=== PATIENT | male | born 1995 | race Caucasian/White ===

== ENCOUNTER 2018-01-31 12:04 | Emergency (ER) | payer OTHER ==
[~2018-01-31] VITALS: Ht 175.3 cm; Wt 77.1 kg
[2018-01-31] MEDS ORDERED: AUGMENTIN 875-1 EACH PO (12:44)
--- NOTE | 2018-01-31 12:44 | ED ANIMAL BITE/WOUND CHECK ---
History of Present Illness General Chief Complaint: Animal/Insect Bite Stated Complaint: DOG BITE Source: patient Exam Limitations: no limitations Vital Signs & Intake/Output Vital Signs & Intake/Output Vital Signs Date Time Temp Pulse Resp B/P B/P Pulse O2 O2 Flow FiO2 Mean Ox Delivery Rate 01/31 1303 99.2 94 18 141/91 98 Room Air 01/31 1225 Room Air 01/31 1209 98.4 108 18 130/90 98 Room Air Allergies Coded Allergies: NO KNOWN ALLERGIES (11/02/13) Reconcile Medications Amoxicillin/Potassium Clav (Augmentin 875-125 Tablet) 875 MG-125 MG TABLET 1 TAB PO BID DOG BITE Triage Note: 22 YO MALE TO TRIAGE FOR EVAL OF DOG BITE TO L LOWER LEG. NOTED WITH PUNTURE WOUND TO LEG, NO ACTIVE BLEEDING. PT STATES DOG WAS UNKNOWN. PT NOT UTD WITH TETANUS. Triage Nurses Notes Reviewed? yes Onset: Abrupt Duration: minute(s): Timing: single episode today Is Injury an Animal Bite? Yes Animal Type: dog HPI: 22-year-old male comes into the emergency room for further evaluation of dog bite to left lower leg. [place] The employment specialist went off with the dog. He is unclear of the dog's rabies vaccine history. He denies any vomiting. His last tetanus shot is unknown. He has a laceration to his left lower leg. Some associated bleeding. He comes in for further evaluation. Past History Travel History Traveled to [place] past 21 day No Medical History Any Pertinent Medical History? 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 No Review of Systems Review of Systems Constitutional: Reports: no symptoms. EENTM: Reports: no symptoms. Respiratory: Reports: no symptoms. Cardiovascular: Reports: no symptoms. GI: Reports: no symptoms. Genitourinary: Reports: no symptoms. Musculoskeletal: Reports: no symptoms. Skin: Reports: see HPI. Neurological/Psychological: Reports: no symptoms. Hematologic/Endocrine: Reports: no symptoms. Immunologic/Allergic: Reports: no symptoms. All Other Systems: Reviewed and Negative Physical Exam Physical Exam General Appearance: well developed/nourished, mild distress Head: atraumatic Eyes: Bilateral: normal appearance. Ears, Nose, Throat: normal ENT inspection, hearing grossly normal Neck: normal inspection Respiratory: no respiratory distress Back: normal inspection Extremities: 2 cm gaping laceration to left lower leg over calf Neurologic/Psych: awake, alert, oriented x 3, normal mood/affect Skin: intact, normal color, warm/dry, 2 cm laceration left lower leg Progress Differential Diagnosis: abscess, cellulitis, joint infection, tenosysnovitis Plan of Care: 01/31/2018 1:44:52 PM Due to the fact that the rabies history is unclear patient was given the full rabies course. Started on oral Augmentin. Laceration was too gaping to not be closed. Watch for signs of infection. Departure Departure Disposition: HOME OR SELF CARE Condition: Stable Clinical Impression Primary Impression: Dog bite Secondary Impressions: Leg laceration Referrals: Wilfred Pollard MD (PCP/Family) Additional Instructions: Keep covered with bacitracin. Watch for signs of infection such as redness on discharge fever chills. Take Augmentin as prescribed. Return on days 3, 7 and 14 for rabies vaccine. Please go over all results of today's visit with your primary care doctor. Contact your primary care doctor to let them know you were here in the emergency room. There may be nonspecific findings which may not be related to your visit today here in the emergency room but may require further evaluation and chronic monitoring by your primary care doctor. If you had a laceration today the chance of foreign body always remains. You should follow-up with your primary care doctor for recheck in 3-5 days for a wound check. If you had an x-ray done there is a chance that a fracture could have been missed on initial read and you should follow-up with your primary care doctor for repeat x-rays if symptoms persist. If your blood pressure was elevated here in the emergency room please have rechecked by [facility] primary care doctor within the next 48. If you were prescribed a narcotic here in the emergency room or any type of controlled substances you're not allowed to drive while taking this medication or operate any type of heavy machinery. Narcotics can make you feel lightheaded dizziness nausea and can cause constipation. You may need to pick pulling machine operator a stool softener. Thank you for choosing emergency room. Please return to the emergency room immediately if you have any other concerns worsening of symptoms. Departure Forms: Customer Survey General Discharge Information Prescriptions: Current Visit Scripts Amoxicillin/Potassium Clav (Augmentin 875-125 Tablet) 1 TAB PO BID #14 TAB Procedures Laceration/Wound Repair Progress: 2 cm laceration to left lower leg, gaping, irrigated with saline Betadine and peroxide, lidocaine with epinephrine, 4 mL injected, 3. 0 nylon, 2 sutures placed, bacitracin and dry sterile dressing placed over
[2018-01-31 13:03] VITALS: BP 141/91
== END 2018-01-31 13:33 ==
LOC: ERH 12:04
DX: S81.812A Laceration without foreign body, left lower leg, initial encounter (principal); W54.0XXA Bitten by dog, initial encounter; Y92.821 Forest as the place of occurrence of the external cause; Y93.01 Activity, walking, marching and hiking
CPT/HCPCS: 90376; 90471; 90714

== ENCOUNTER 2018-02-07 15:10 | Emergency (ER) | payer OTHER ==
[~2018-02-07] VITALS: Ht 175.3 cm; Wt 79.4 kg
[~2018-02-07 15:10] MED LIST: AUGMENTIN 875-1 EACH PO
[2018-02-07 15:20] VITALS: BP 127/81
== END 2018-02-07 15:45 | disposition admitted as inpatient to this hospital (09) ==
LOC: ERH 15:10
DX: Z28.89 Immunization not carried out for other reason (principal)

== ENCOUNTER 2018-02-11 11:42 | Emergency (ER) | payer OTHER ==
[~2018-02-11] VITALS: Ht 175.3 cm; Wt 79.4 kg
[2018-02-11 11:52] VITALS: BP 130/82
--- NOTE | 2018-02-11 13:15 | ED ANIMAL BITE/WOUND CHECK ---
History of Present Illness General Chief Complaint: Suture Removal/Wound Recheck Stated Complaint: SUTURE REMOVAL Source: patient, old records Exam Limitations: no limitations Vital Signs & Intake/Output Vital Signs & Intake/Output Vital Signs Date Time Temp Pulse Resp B/P B/P Pulse O2 O2 Flow FiO2 Mean Ox Delivery Rate 02/11 1152 98.0 83 16 130/82 98 Room Air Allergies Coded Allergies: NO KNOWN ALLERGIES (11/02/13) Reconcile Medications Amoxicillin/Potassium Clav (Augmentin 875-125 Tablet) 875 MG-125 MG TABLET 1 TAB PO BID DOG BITE Triage Note: 22M FOR SUTURE REMOVAL, TWO SUTURES PLACED 10 DAYS AGO LAST TUESDAY. LAST RABIES SHOT DUE NEXT WEEK. VERY MINIMAL REDNESS SURROUNDING SITE, NO DRAINAGE. DENIES F/C, AFEBRILE IN TRIAGE Triage Nurses Notes Reviewed? yes Onset: Abrupt Duration: better Timing: recent history Severity of Attack: bitten Severity: mild HPI: Patient is a 22-year-old male who presents emergent with request of wound check and suture removal with old records indicate on January 31 he was bit by an unknown stray dog to the left calf region patient received rabies vaccines and #2 sutures were placed for the laceration Patient had finished course of the antibiotics prescribed to him denies any fever chills discharged and is otherwise without complaints. (Trevon Dias) Past History Travel History Traveled to [place] past 21 day No Medical History Any Pertinent Medical History? 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 No (Trevon Dias) Review of Systems Review of Systems Constitutional: Reports: no symptoms. EENTM: Reports: no symptoms. Respiratory: Reports: no symptoms. Cardiovascular: Reports: no symptoms. GI: Reports: no symptoms. Genitourinary: Reports: no symptoms. Musculoskeletal: Reports: no symptoms. Skin: Reports: see HPI. Neurological/Psychological: Reports: no symptoms. Hematologic/Endocrine: Reports: no symptoms. Immunologic/Allergic: Reports: no symptoms. All Other Systems: Reviewed and Negative (Trevon Dias) Physical Exam Physical Exam General Appearance: no apparent distress, alert, comfortable Head: atraumatic Eyes: Bilateral: normal appearance. Ears, Nose, Throat: hearing grossly normal Neck: normal inspection Respiratory: no respiratory distress Extremities: evidence of injury Neurologic/Psych: no motor/sensory deficits, awake, alert Skin: normal color, warm/dry Diagram Body: 1) Well-healing 1 cm laceration with #2 intact sutures no surrounding erythema warmth or discharge (Trevon Dias) Progress Differential Diagnosis: abscess, cellulitis, joint infection, tenosysnovitis Plan of Care: No signs of infection on exam, #2 sutures were removed without complications bacitracin bandage was applied. Patient was advised to return to emergency room on February 14 for his final rabies vaccine (Trevon Dias) Departure Departure Disposition: HOME OR SELF CARE Condition: Stable Clinical Impression Primary Impression: Visit for wound check Secondary Impressions: Visit for suture removal Referrals: Wilfred Pollard MD (PCP/Family) Additional Instructions: As discussed apply bacitracin ointment AND BANDAID and change dressings 1 more day tomorrow, and leave the wound open to improve healing. If you note signs of infection or if YOU develop new concerning symptom return to emergency room, return to emergency room on February 14 for your final rabies vaccine. Keep area dry and clean as YOU can Departure Forms: Customer Survey General Discharge Information (Trevon Dias) PA/PROFESSOR OF BIOLOGICAL SCIENCES Co-Sign Statement Statement: ED Attending supervision documentation- [] I saw and evaluated the patient. I have also reviewed all the pertinent lab results and diagnostic results. I agree with the findings and the plan of care as documented in the PA's/PROFESSOR OF BIOLOGICAL SCIENCES's documentation. [X] I have reviewed the ED Record and agree with the PA's/PROFESSOR OF BIOLOGICAL SCIENCES's documentation. [] Additions or exceptions (if any) to the PAs/PROFESSOR OF BIOLOGICAL SCIENCES's note and plan are summarized below: [] (Rick MARQUEZ,Nehemiah Gay)
== END 2018-02-11 13:27 ==
LOC: ERH 11:42
DX: Z48.02 Encounter for removal of sutures (principal)

== ENCOUNTER 2018-02-14 14:53 | Emergency (ER) | payer OTHER ==
[~2018-02-14] VITALS: Ht 175.3 cm; Wt 79.4 kg
--- NOTE | 2018-02-14 15:36 | ED GENERAL ADULT ---
History of Present Illness General Chief Complaint: General Adult Stated Complaint: LAST RABIES SHOT Source: patient Exam Limitations: no limitations Vital Signs & Intake/Output Vital Signs & Intake/Output Vital Signs Date Time Temp Pulse Resp B/P B/P Pulse O2 O2 Flow FiO2 Mean Ox Delivery Rate 02/14 1538 Room Air 02/14 1500 98.9 102 18 98 Room Air Room Air Allergies Coded Allergies: NO KNOWN ALLERGIES (11/02/13) Reconcile Medications Amoxicillin/Potassium Clav (Augmentin 875-125 Tablet) 875 MG-125 MG TABLET 1 TAB PO BID DOG BITE Triage Note: PT TO ED FOR LAST RABIES SHOT, ORIGINAL INJURY WAS DOG BITE TO LEFT [place] AREA. Triage Nurses Notes Reviewed? yes Onset: Abrupt Duration: day(s): Timing: recent history Injury Environment: home Severity: moderate, severe HPI: 22-year-old male comes into the emergency room for further evaluation of laceration is vaccine. Denies any other associated symptoms. Patient had been bitten by a dog initially. (Duncan Mock) Past History Travel History Traveled to [place] past 21 day No Medical History Any Pertinent Medical History? 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 No (Duncan Mock) Review of Systems Review of Systems Constitutional: Reports: no symptoms. EENTM: Reports: no symptoms. Respiratory: Reports: no symptoms. Cardiovascular: Reports: no symptoms. GI: Reports: no symptoms. Genitourinary: Reports: no symptoms. Musculoskeletal: Reports: no symptoms. Skin: Reports: no symptoms. Neurological/Psychological: Reports: no symptoms. Hematologic/Endocrine: Reports: no symptoms. Immunologic/Allergic: Reports: no symptoms. All Other Systems: Reviewed and Negative (Duncan Mock) Physical Exam Physical Exam General Appearance: well developed/nourished, no apparent distress, alert, awake Head: atraumatic, normal appearance Eyes: Bilateral: normal appearance. Ears, Nose, Throat: normal ENT inspection, hearing grossly normal Neck: normal inspection Respiratory: no respiratory distress Gastrointestinal: soft Back: normal inspection Extremities: Scabbing to left lower leg, no erythema, no warmth, discharge Neurologic/Psych: awake, alert, oriented x 3, normal gait Skin: intact, normal color Core Measures ACS in differential dx? No CVA/TIA Diagnosis: No Sepsis Present: No Sepsis Focused Exam Completed? No (Duncan Mock) Progress Differential Diagnoses I considered the following diagnoses in my evaluation of the patient: Rabies, allergic reaction, cellulitis, abscess, Plan of Care: 02/14/2018 3:44:28 PM Patient clinically looks well. In no apparent distress. Nontoxic-appearing. Initial ED EKG: none (Duncan Mock) Departure Departure Disposition: HOME OR SELF CARE Condition: Stable Clinical Impression Primary Impression: Need for post exposure prophylaxis for rabies Referrals: Wilfred Pollard MD (PCP/Family) Additional Instructions: Return if any other concerns worsening symptoms. Please go over all results of today's visit with your primary care doctor. Contact your primary care doctor to let them know you were here in the emergency room. There may be nonspecific findings which may not be related to your visit today here in the emergency room but may require further evaluation and chronic monitoring by your primary care doctor. If you had a laceration today the chance of foreign body always remains. You should follow-up with your primary care doctor for recheck in 3-5 days for a wound check. If you had an x-ray done there is a chance that a fracture could have been missed on initial read and you should follow-up with your primary care doctor for repeat x-rays if symptoms persist. If your blood pressure was elevated here in the emergency room please have rechecked by [facility] primary care doctor within the next 48. If you were prescribed a narcotic here in the emergency room or any type of controlled substances you're not allowed to drive while taking this medication or operate any type of heavy machinery. Narcotics can make you feel lightheaded dizziness nausea and can cause constipation. You may need to merchandise pickup/receiving associate a stool softener. Thank you for choosing [facility] emergency room. Please return to the emergency room immediately if you have any other concerns worsening of symptoms. Departure Forms: Customer Survey General Discharge Information (Duncan Mock) PA/MILLER ROD MILL Co-Sign Statement Statement: ED Attending supervision documentation- I saw and evaluated the patient. I have also reviewed all the pertinent lab results and diagnostic results. I agree with the findings and the plan of care as documented in the PA's/MILLER ROD MILL's documentation. x I have reviewed the ED Record and agree with the PA's/MILLER ROD MILL's documentation. [] Additions or exceptions (if any) to the PAs/MILLER ROD MILL's note and plan are summarized below: [] (Felicia MARQUEZ,Rudy) Critical Care Note Critical Care Note Critical Care Time: non-applicable (Duncan Mock)
== END 2018-02-14 15:36 ==
LOC: ERH 14:53
DX: Z20.3 Contact with and (suspected) exposure to rabies (principal)
CPT/HCPCS: 90471